=== PATIENT | female | born 1945 | race Caucasian/White ===

== ENCOUNTER 2016-10-14 16:35 | Emergency (ER) | payer MEDICARE, OTHER | END 2016-10-14 18:26 | disposition home or self-care (01) | LOC: FER 16:35 | DX: S61.451A Open bite of right hand, initial encounter (principal); I10 Essential (primary) hypertension; E78.5 Hyperlipidemia, unspecified; Z88.5 Allergy status to narcotic agent; Z79.82 Long term (current) use of aspirin; Z79.899 Other long term (current) drug therapy; W54.0XXA Bitten by dog, initial encounter | CPT/HCPCS: 73130; 87070; 87077; 87186; 87205; 90471; 90715 ==